=== PATIENT | male | born 1970 | race African-American/Black ===

== ENCOUNTER 2018-12-09 23:57 | Inpatient (IN) | payer BC ==
[~2018-12-09] VITALS: Ht 180.3 cm; Wt 107.5 kg
[2018-12-10 00:15] VITALS: BP 138/56
[2018-12-10] MEDS ORDERED: NACL 0.9% 1,000 ML IV ONE (00:45)
[2018-12-10 01:00] LABS: BASOPHILS # (AUTO) 0.1 K/uL (0.00-0.22); BASOPHILS % (AUTO) 0.8 % (0.0-2.0); EOSINOPHILS # (AUTO) 0.2 K/uL (0-0.4); EOSINOPHILS % (AUTO) 2.1 % (0.0-4.0); HEMATOCRIT 42.4 % (36-52); HEMOGLOBIN 14.4 g/dL (12.0-18.0); LYMPHOCYTES # (AUTO) 2.5 K/uL (2.0-11.5); LYMPHOCYTES % (AUTO) 28.1 % (20.5-51.1); MEAN CORPUSCULAR HEMOGLOBIN 31 pg (27-31); MEAN CORPUSCULAR HGB CONC 34 g/dL (33-37); MEAN CORPUSCULAR VOLUME 90.5 fL (80-94); MONOCYTES # (AUTO) 0.6 K/uL (0.8-1.0); MONOCYTES % (AUTO) 6.7 % (1.7-9.3); NEUTROPHILS # (AUTO) 5.6 K/uL (1.8-7.7); NEUTROPHILS % (AUTO) 62.3 % (42.2-75.2); PLATELET COUNT (AUTO) 239 K/uL (140-450); RED BLOOD CELL COUNT(AUTO) 4.68 MIL/uL (4.20-6.10); RED CELL DISTRIBUTION WIDTH 13.1 % (11.6-13.7); WHITE BLOOD COUNT (AUTO) 8.9 K/uL (4.8-10.8)
[2018-12-10 01:10] LABS: CARBON DIOXIDE 27.4 mmol/L (21-32); POTASSIUM 4.4 mmol/L (3.5-5.1)
[2018-12-10 01:11] LABS: CREATININE 1.5 mg/dL (0.7-1.3)
[2018-12-10 01:16] LABS: ALBUMIN 3.8 g/dL (3.4-5.0); TOTAL BILIRUBIN 0.2 mg/dL (0.0-1.0)
[2018-12-10 01:19] LABS: PROTHROMBIN TIME 10.3 secs (10.8-13.4)
[2018-12-10] MEDS ORDERED: metroNIDAZOLE 500 MG/NS PREMIX 100 ML IV ONE (01:30)
[2018-12-10] MEDS ORDERED: cefTRIAXone 1,000 MG VIAL ONE (02:02)
[2018-12-10] MEDS ORDERED: MORPHINE SULFATE 2 MG/ML SYR IVP PRN (03:10)
[2018-12-10] MEDS ORDERED: LORazepam 2 MG/ML VIAL IM/IVP PRN (03:10)
[2018-12-10] MEDS ORDERED: ONDANSETRON 4 MG/2 ML VIAL IM/IVP PRN (03:10)
[2018-12-10] MEDS ORDERED: ACETAMINOPHEN 325 MG TAB PO PRN (03:10)
[2018-12-10] MEDS ORDERED: DOCUSATE SODIUM 100 MG GELCAP PO PRN (03:10)
[2018-12-10] MEDS ORDERED: FAMOTIDINE 20 MG/2 ML VIAL IV PRN (03:10)
[2018-12-10] MEDS ORDERED: ALLO100T21 PO (03:45)
[2018-12-10] MEDS ORDERED: METF850T PO (03:45)
[2018-12-10] MEDS ORDERED: LOSA25TA43 PO (03:45)
[2018-12-10 03:53] LABS: MAGNESIUM 1.8 mg/dL (1.8-2.4); PHOSPHORUS 3.3 mg/dL (2.5-4.9)
[2018-12-10 03:54] LABS: CHOL/HDL RATIO 5.3 (1-4.5); FREE T4 (FREE THYROXINE) 0.83 ng/dL (0.76-1.46); THYROID STIMULATING HORMONE 4.34 uIU/mL (0.34-3.74)
[2018-12-10 04:00] VITALS: BP 112/83
[2018-12-10] MEDS ORDERED: GLUCAGON 1 MG VIAL IVP PRN (04:20)
[2018-12-10] MEDS ORDERED: DEXTROSE 50% 50 ML SYR IVP PRN (04:20)
[2018-12-10] MEDS ORDERED: INSULIN LISPRO SLIDING SCALE 100 UNITS/ML VIAL SUBQ PRN (04:20)
[2018-12-10] MEDS: DEXT 5% /NACL 0.9% 1,000 ML IV SCH ×3 (05:11→17:46)
[2018-12-10] MEDS: BLOOD GLUCOSE MONITORING 1 DEV DEV FS SCH ×4 (06:30→21:20)
[2018-12-10 08:00] VITALS: BP 113/78
[2018-12-10 08:05] LABS: APPEARANCE,URINE CLEAR (CLEAR); BILIRUBIN,URINE NEGATIVE (NEGATIVE); BLOOD, URINE NEGATIVE (NEGATIVE); COLOR,URINE YELLOW (YELLOW); LEUKOCYTE ESTERASE ,URINE TRACE (NEGATIVE); NITRITE, URINE NEGATIVE (NEGATIVE); PH,URINE 6.5 (5.0-9.0); UGLUCOSE NEGATIVE (NEGATIVE)
[2018-12-10 08:25] LABS: BARBITURATE, URINE NEGATIVE ng/ml (NEG <=200); BENZODIAZEPINE, URINE NEGATIVE ng/mL (NEG <=200); CANNABINOID, URINE NEGATIVE ng/mL (NEG <=50); COCAINE, URINE NEGATIVE ng/mL (NEG <=300); OPIATE, URINE NEGATIVE ng/mL (NEG <=2000); PHENCYCLIDINE SCREEN,URINE NEGATIVE ng/mL (NEG <=25)
[2018-12-10] MEDS: LACTOBACILLUS RHAMNOSUS GG 1 EACH CAP PO SCH (08:37)
[2018-12-10] MEDS: LOSARTAN 25 MG TAB PO SCH (08:38)
[2018-12-10 08:59] LABS: BASOPHILS % (AUTO) 0.3 % (0.0-2.0); EOSINOPHILS # (AUTO) 0.2 K/uL (0-0.4); EOSINOPHILS % (AUTO) 1.8 % (0.0-4.0); HEMATOCRIT 39.9 % (36-52); HEMOGLOBIN 13.2 g/dL (12.0-18.0); LYMPHOCYTES # (AUTO) 2.5 K/uL (2.0-11.5); LYMPHOCYTES % (AUTO) 25.5 % (20.5-51.1); MEAN CORPUSCULAR HEMOGLOBIN 30 pg (27-31); MEAN CORPUSCULAR HGB CONC 33 g/dL (33-37); MEAN CORPUSCULAR VOLUME 91.9 fL (80-94); MONOCYTES # (AUTO) 0.6 K/uL (0.8-1.0); MONOCYTES % (AUTO) 6.5 % (1.7-9.3); NEUTROPHILS # (AUTO) 6.4 K/uL (1.8-7.7); NEUTROPHILS % (AUTO) 65.9 % (42.2-75.2); PLATELET COUNT (AUTO) 213 K/uL (140-450); RED BLOOD CELL COUNT(AUTO) 4.34 MIL/uL (4.20-6.10); RED CELL DISTRIBUTION WIDTH 13.2 % (11.6-13.7); WHITE BLOOD COUNT (AUTO) 9.7 K/uL (4.8-10.8)
[2018-12-10 09:37] LABS: POTASSIUM 3.9 mmol/L (3.5-5.1)
[2018-12-10 09:38] LABS: ANION GAP 10.6 (8-16); CARBON DIOXIDE 27.3 mmol/L (21-32); CREATININE 1.3 mg/dL (0.7-1.3)
[2018-12-10] MEDS: metroNIDAZOLE 500 MG/NS PREMIX 100 ML IV SCH ×2 (10:00→17:47)
[2018-12-10] MEDS: BUPIVACAINE-MPF/EPI 0.25% 30 ML VIAL INJ ONE ×2 (10:05→11:20)
[2018-12-10] MEDS ORDERED: ROCURONIUM 50 MG/5 ML VIAL IV ONE (10:26)
[2018-12-10] MEDS ORDERED: NEOSTIGMINE 1:1000 10 MG/10 ML VIAL ONE (10:26)
[2018-12-10] MEDS ORDERED: DESFLURANE 240 ML BTL INH ONE (10:26)
[2018-12-10] MEDS ORDERED: DEXAMETHASONE 4 MG/ML VIAL ONE (10:26)
[2018-12-10] MEDS ORDERED: PROPOFOL 200 MG/20 ML VIAL IV ONE (10:26)
[2018-12-10] MEDS ORDERED: ONDANSETRON 4 MG/2 ML VIAL ONE (10:26)
[2018-12-10] MEDS ORDERED: GLYCOPYRROLATE 0.2 MG/ML VIAL ONE (10:26)
[2018-12-10] MEDS ORDERED: SUCCINYLCHOLINE CHLORIDE 200 MG/10 ML VIAL IVP ONE (10:26)
[2018-12-10] MEDS ORDERED: fentaNYL 0.05 MG/ML VIAL ONE (10:39)
[2018-12-10] MEDS ORDERED: HYDROmorphone PFS 2 MG/ML SYR ONE (10:39)
[2018-12-10] MEDS ORDERED: BLOOD GLUCOSE MONITORING 1 DEV DEV FS ONE (11:45)
[2018-12-10 13:57] LABS: RBC,URINE NONE SEEN /HPF (0-5); WBC,URINE 0-5 /HPF (0-5)
[2018-12-10 16:00] VITALS: BP 111/59
[2018-12-10 20:00] VITALS: BP 103/61
[2018-12-10] MEDS ORDERED: SIMETHICONE 80 MG TAB.CHEW PO SCH (20:00)
[2018-12-10] MEDS: HYDROcodone/APAP 7.5/325 MG 1 TAB PO PRN (21:01)
[2018-12-11] MEDS: DEXT 5% /NACL 0.9% 1,000 ML IV SCH ×4 (00:15→23:50)
[2018-12-11 00:20] VITALS: BP 111/70
[2018-12-11] MEDS: metroNIDAZOLE 500 MG/NS PREMIX 100 ML IV SCH ×3 (02:06→17:19)
[2018-12-11] MEDS: HYDROcodone/APAP 7.5/325 MG 1 TAB PO PRN ×3 (04:27→23:53)
[2018-12-11 04:40] VITALS: BP 109/67
[2018-12-11 06:47] LABS: ANION GAP 9.4 (8-16); CARBON DIOXIDE 27.4 mmol/L (21-32); CREATININE 1.2 mg/dL (0.7-1.3); POTASSIUM 3.8 mmol/L (3.5-5.1)
[2018-12-11] MEDS: BLOOD GLUCOSE MONITORING 1 DEV DEV FS SCH ×4 (07:31→20:37)
[2018-12-11 07:47] LABS: BASOPHILS % (AUTO) 0.3 % (0.0-2.0); EOSINOPHILS # (AUTO) 0.2 K/uL (0-0.4); EOSINOPHILS % (AUTO) 1.7 % (0.0-4.0); HEMATOCRIT 36.7 % (36-52); HEMOGLOBIN 12.2 g/dL (12.0-18.0); LYMPHOCYTES # (AUTO) 2.1 K/uL (2.0-11.5); LYMPHOCYTES % (AUTO) 21.6 % (20.5-51.1); MEAN CORPUSCULAR HEMOGLOBIN 31 pg (27-31); MEAN CORPUSCULAR HGB CONC 33 g/dL (33-37); MEAN CORPUSCULAR VOLUME 92.1 fL (80-94); MONOCYTES # (AUTO) 0.7 K/uL (0.8-1.0); MONOCYTES % (AUTO) 6.9 % (1.7-9.3); NEUTROPHILS # (AUTO) 6.7 K/uL (1.8-7.7); NEUTROPHILS % (AUTO) 69.5 % (42.2-75.2); PLATELET COUNT (AUTO) 198 K/uL (140-450); RED BLOOD CELL COUNT(AUTO) 3.99 MIL/uL (4.20-6.10); RED CELL DISTRIBUTION WIDTH 13.7 % (11.6-13.7); WHITE BLOOD COUNT (AUTO) 9.7 K/uL (4.8-10.8)
[2018-12-11 07:56] LABS: MAGNESIUM 1.7 mg/dL (1.8-2.4); PHOSPHORUS 2.6 mg/dL (2.5-4.9)
[2018-12-11 08:02] VITALS: BP 106/63
[2018-12-11] MEDS ORDERED: MAGNESIUM OXIDE 400 MG TAB PO SCH (08:30)
[2018-12-11] MEDS: LOSARTAN 25 MG TAB PO SCH (08:41)
[2018-12-11] MEDS: LACTOBACILLUS RHAMNOSUS GG 1 EACH CAP PO SCH (08:41)
[2018-12-11] MEDS: CYCLOBENZAPRINE 10 MG TAB PO SCH ×3 (08:41→17:16)
[2018-12-11] MEDS ORDERED: SIMETHICONE 80 MG TAB.CHEW PO SCH (09:00)
[2018-12-11 12:00] VITALS: BP 114/76
[2018-12-11] MEDS: fentaNYL 0.05 MG/ML VIAL ONE ×2 (12:25→12:42)
[2018-12-11] MEDS: MIDAZOLAM 2 MG/2 ML VIAL ONE ×2 (12:25→12:42)
[2018-12-11] MEDS ORDERED: diphenhydrAMINE 50 MG/ML VIAL ONE (12:33)
[2018-12-11] MEDS: SIMETHICONE 80 MG TAB.CHEW PO SCH ×2 (13:01→17:15)
[2018-12-11 16:00] VITALS: BP 127/85
[2018-12-11] MEDS: METOCLOPRAMIDE 10 MG TAB PO SCH (17:17)
[2018-12-11] MEDS: POLYETHYLENE GLYCOL 17 GM/PKT PO SCH (20:20)
[2018-12-12] VITALS: BP 137/90
[2018-12-12] MEDS: metroNIDAZOLE 500 MG/NS PREMIX 100 ML IV SCH ×2 (01:34→09:20)
[2018-12-12] MEDS: METOCLOPRAMIDE 10 MG TAB PO SCH ×3 (06:30→16:58)
[2018-12-12] MEDS: BLOOD GLUCOSE MONITORING 1 DEV DEV FS SCH ×3 (06:37→16:56)
[2018-12-12 07:50] VITALS: BP 132/91
[2018-12-12] MEDS: SIMETHICONE 80 MG TAB.CHEW PO SCH ×3 (09:10→16:58)
[2018-12-12] MEDS: CYCLOBENZAPRINE 10 MG TAB PO SCH ×3 (09:11→16:58)
[2018-12-12] MEDS: LACTOBACILLUS RHAMNOSUS GG 1 EACH CAP PO SCH (09:12)
[2018-12-12] MEDS: POLYETHYLENE GLYCOL 17 GM/PKT PO SCH (09:12)
[2018-12-12] MEDS: LOSARTAN 25 MG TAB PO SCH (09:14)
[2018-12-12] MEDS: DEXT 5% /NACL 0.9% 1,000 ML IV SCH ×3 (09:15→16:15)
[2018-12-12] MEDS ORDERED: ACET-5629 PO (11:47)
[2018-12-12] MEDS ORDERED: DOCU-299 PO (11:48)
[2018-12-12 16:00] VITALS: BP 132/80
== END 2018-12-12 17:40 | disposition home or self-care (01) | DRG 338 ==
LOC: MED 23:57 → MTU 12-10 03:13
PROVIDERS: ADMIT General Practice; ATTEND General Practice
PROC: 0DTJ4ZZ Resection of Appendix, Percutaneous Endoscopic Approach (ICD-10-PCS; principal; 2018-12-10 11:45)
PROC: 0DB68ZX Excision of Stomach, Via Natural or Artificial Opening Endoscopic, Diagnostic (ICD-10-PCS; 2018-12-11)
DX: K35.33 Acute appendicitis with perforation, localized peritonitis, and gangrene, with abscess (principal); N17.0 Acute kidney failure with tubular necrosis; K92.2 Gastrointestinal hemorrhage, unspecified; C64.9 Malignant neoplasm of unspecified kidney, except renal pelvis; E66.9 Obesity, unspecified; M10.9 Gout, unspecified; N28.1 Cyst of kidney, acquired; E83.42 Hypomagnesemia; N18.9 Chronic kidney disease, unspecified; I12.9 Hypertensive chronic kidney disease with stage 1 through stage 4 chronic kidney disease, or unspecified chronic kidney disease; E11.22 Type 2 diabetes mellitus with diabetic chronic kidney disease; K31.9 Disease of stomach and duodenum, unspecified; T39.395A Adverse effect of other nonsteroidal anti-inflammatory drugs [NSAID], initial encounter; Y92.89 Other specified places as the place of occurrence of the external cause; Z68.33 Body mass index [BMI] 33.0-33.9, adult; Z90.49 Acquired absence of other specified parts of digestive tract
CPT/HCPCS: 36415; 71045; 76705; 80048; 80053; 80305; 81001; 82150; 82374; 82948; 83036; 83690; 83735; 83880; 84100; 84439; 84443; 84484; 84550; 85018; 85025; 85610; 85730; 86140; 86677; 86886; 86900; 86901; 87040; 87081; 88304; 93005; 96360; 99285; J0330; J0696; J1100; J1170; J1200; J1815; J2250; J2405; J2704; J2710; J3010; J3490; J7030; J7042; J7060; J8597; Q0092